=== PATIENT | male | born 1980 | race Caucasian/White ===

== ENCOUNTER 2016-06-04 06:22 | Emergency (ER) | payer MEDICAID ==
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
[2016-06-04 08:52] LABS: ABSOLUTE EOSINOPHILS # (AUTO) 0.1 10^3/uL (0.0-0.6); ABSOLUTE LYMPHOCYTES (AUTO) 1.9 10^3/uL (0.5-4.7); ABSOLUTE MONOCYTES (AUTO) 0.3 10^3/uL (0.1-1.4); BASOPHILS % (AUTO) 0.4 % (0-2); EOSINOPHILS % (AUTO) 0.8 % (0-6); HEMATOCRIT 44.1 % (37.9-51.0); HEMOGLOBIN 14.6 g/dL (13.5-17.0); HGB HCT DIFFERENCE -0.3; LYMPHOCYTES % (AUTO) 26.5 % (13-45); MEAN CORPUSCULAR HEMOGLOBIN 30.2 pg (27.0-33.4); MEAN CORPUSCULAR HGB CONC 33.1 g/dL (32.0-36.0); MEAN CORPUSCULAR VOLUME 91 fl (80-97); MONOCYTES % (AUTO) 4.1 % (3-13); RED BLOOD COUNT 4.84 10^6/uL (4.35-5.55); RED CELL DISTRIBUTION WIDTH 13.5 % (11.5-14.0); SEGMENTED NEUTROPHILS % (AUTO) 68.2 % (42-78); WHITE BLOOD COUNT 7.3 10^3/uL (4.0-10.5)
[2016-06-04 08:55] LABS: APPEARANCE,URINE CLEAR; BILIRUBIN,URINE NEGATIVE (NEGATIVE); GLUCOSE, URINE NEGATIVE (NEGATIVE); KETONES,URINE NEGATIVE (NEGATIVE); LEUKOCYTE ESTERASE,URINE NEGATIVE (NEGATIVE); NITRITE,URINE NEGATIVE (NEGATIVE); PROTEIN,URINE NEGATIVE (NEGATIVE); URINE SPECIFIC GRAVITY 1.006; UROBILINOGEN,URINE NEGATIVE mg/dL (<2.0)
[2016-06-04 09:11] LABS: ALANINE AMINOTRANSFERASE 19 U/L (21-72); ALBUMIN 4.2 g/dL (3.5-5.0); ALCOHOL 153 mg/dL (NONE DETECTED); ALKALINE PHOSPHATASE 55 U/L (38-126); ANION GAP 15 (5-19); ASPARTATE AMINO TRANSFERASE 23 U/L (17-59); BILIRUBIN,TOTAL 0.3 mg/dL (0.2-1.3); BLOOD UREA NITROGEN 15 mg/dL (7-20); CALCIUM 9.2 mg/dL (8.4-10.2); CARBON DIOXIDE 23 mmol/L (22-30); CHLORIDE 107 mmol/L (98-107); CREATININE RESULT 0.92 mg/dL (0.52-1.25); GLUCOSE 81 mg/dL (75-110); POTASSIUM 4.1 mmol/L (3.6-5.0); SODIUM 144.6 mmol/L (137-145); TOTAL PROTEIN 6.9 g/dL (6.3-8.2); URINE BARBITURATES SCREEN NEGATIVE; URINE METHADONE SCREEN NEGATIVE; URINE PHENCYCLIDINE SCREEN NEGATIVE
--- NOTE | 2016-06-04 11:04 | EKG REPORT ---
SEVERITY:- NORMAL ECG - SINUS RHYTHM ST ELEV, PROBABLE NORMAL EARLY REPOL PATTERN : Confirmed by: Puma Inman MD 04-Jun-2016 11:03:23
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
[2016-06-04 14:43] VITALS: BP 122/70
== END 2016-06-04 14:43 | disposition home or self-care (01) ==
LOC: ER 06:22
DX: F10.120 Alcohol abuse with intoxication, uncomplicated (principal); R45.851 Suicidal ideations; F41.9 Anxiety disorder, unspecified; F32.9 Major depressive disorder, single episode, unspecified; M25.519 Pain in unspecified shoulder; G89.29 Other chronic pain; R56.9 Unspecified convulsions
CPT/HCPCS: 36415; 80053; 80307; 81001; 85025; 93005; 93010; 99285

== ENCOUNTER 2016-09-05 03:43 | Emergency (ER) | payer MEDICAID, OTHER ==
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
[2016-09-05 05:55] VITALS: BP 120/75
--- NOTE | 2016-09-05 10:45 | EKG REPORT ---
SEVERITY:- NORMAL ECG - SINUS RHYTHM : Confirmed by: Archie Bernal 05-Sep-2016 10:44:57
== END 2016-09-05 05:54 | disposition home or self-care (01) ==
LOC: ER 03:43
DX: F41.9 Anxiety disorder, unspecified (principal); F17.200 Nicotine dependence, unspecified, uncomplicated; J44.9 Chronic obstructive pulmonary disease, unspecified
CPT/HCPCS: 93005; 93010; 99283

== ENCOUNTER 2016-09-05 10:01 | Emergency (ER) | payer MEDICAID ==
[2016-09-05] MEDS ORDERED: OXYCODONE-ACETAMINOPHEN 5-325 MG TABLET PO ONE (11:20)
--- NOTE | 2016-09-05 11:20 | ER Document Report ---
ED Medical Screen (RME) - General Chief Complaint: Shoulder Pain Stated Complaint: SHOULDER PAIN Mode of Arrival: Ambulatory Information source: Patient Notes: 36-year-old male presents with complaints of left shoulder pain, patient fell off ladder was attempted to grab himself feels his shoulder popped out just prior to arrival No previous similar episodes notes mild numbness in the back of her shoulder, pulses intact otherwise patient able to squeeze I have greeted and performed a rapid initial assessment of this patient. A comprehensive ED assessment and evaluation of the patient, analysis of test results and completion of the medical decision making process will be conducted by additional ED providers. PHYSICAL EXAMINATION: GENERAL: Well-appearing, well-nourished and in no acute distress. HEAD: Atraumatic, normocephalic. EYES: Pupils equal round extraocular movements intact, conjunctiva are normal. ENT: Nares patent NECK: Normal range of motion LUNGS: No respiratory distress Musculoskeletal: Limited range of motion of the left upper extremity with deformity of the left humeral head NEUROLOGICAL: Normal speech, normal gait. PSYCH: Normal mood, normal affect. SKIN: Warm, Dry, normal turgor, no rashes or lesions noted. TRAVEL OUTSIDE OF THE [place] IN LAST 30 DAYS: No - Related Data Allergies/Adverse Reactions: ketorolac [From Toradol] Allergy (Verified 09/05/16 03:53) tramadol Allergy (Verified 09/05/16 03:53) Past Medical History Pulmonary Medical History: Reports: Hx Bronchitis, Hx COPD, Hx Pneumonia Renal/ Medical History: Denies: Hx Peritoneal Dialysis Psychiatric Medical History: Reports: Hx Anxiety, Hx Depression Past Surgical History: Reports: Hx Orthopedic Surgery - left knee - Immunizations Immunizations up to date: Yes Hx Diphtheria, Pertussis, Tetanus Vaccination: Yes - 2010 Physical Exam - Vital signs Vitals: Temp Pulse Resp BP Pulse Ox 97.7 F 86 18 159/91 H 100 09/05/16 10:09/05/16 10:09/05/16 10:09/05/16 10:09/05/16 10:17 Course - Vital Signs Vital signs: Temp Pulse Resp BP Pulse Ox 97.7 F 86 18 159/91 H 100 09/05/16 10:09/05/16 10:09/05/16 10:09/05/16 10:09/05/16 10:17
[2016-09-05] MEDS ORDERED: MORPHINE SULFATE 10 MG/ML INJ IV ONE (11:26)
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
[2016-09-05 13:06] VITALS: BP 129/86
== END 2016-09-05 13:18 | disposition home or self-care (01) ==
LOC: ER 10:01
DX: S46.912A Strain of unspecified muscle, fascia and tendon at shoulder and upper arm level, left arm, initial encounter (principal); W11.XXXA Fall on and from ladder, initial encounter
CPT/HCPCS: 99283; 96374; 73030; J2270

== ENCOUNTER 2017-01-01 16:07 | Emergency (ER) | payer SELFPAY ==
[2017-01-01] MEDS ORDERED: NORMAL SALINE 1000 ML 1,000 ML IV ONE (16:19)
[2017-01-01] MEDS ORDERED: FAMOTIDINE INJ/PF 20 MG/2 ML SDV IV ONE (16:19)
--- NOTE | 2017-01-01 16:24 | ER Document Report ---
ED GI/ - General Chief Complaint: Vomiting Stated Complaint: VOMITTING Time Seen by Provider: 01/01/17 16:19 Notes: The patient is a 36-year-old male who presents after 3 episodes of yellow vomiting earlier today while he was out on his friend's boat. He said that he was drinking a lot of alcohol last night and felt some motion sickness on the boat today. He also had an episode of watery diarrhea today. One of his friends told him that he syncopized, but he is unsure. He was given Zofran by EMS and a normal saline bolus and feels better. Patient only having mild epigastric pain and denies fevers, hematemesis, headache, back pain, diarrhea, constipation or recent travel. TRAVEL OUTSIDE OF THE [place] IN LAST 30 DAYS: No - Related Data Allergies/Adverse Reactions: ketorolac [From Toradol] Allergy (Verified 09/05/16 03:53) tramadol Allergy (Verified 09/05/16 03:53) Past Medical History - General Information source: Patient - Social History Smoking Status: Current Every Day Smoker Family History: Reviewed & Not Pertinent, CAD - mi fathers sided, early 40's Pulmonary Medical History: Reports: Hx Bronchitis, Hx COPD, Hx Pneumonia Renal/ Medical History: Denies: Hx Peritoneal Dialysis Psychiatric Medical History: Reports: Hx Anxiety, Hx Depression Past Surgical History: Reports: Hx Orthopedic Surgery - left knee - Immunizations Immunizations up to date: Yes Hx Diphtheria, Pertussis, Tetanus Vaccination: Yes - 2010 Review of Systems - Review of Systems Notes: REVIEW OF SYSTEMS: CONSTITUTIONAL: -fevers, -chills EENT: -eye pain, -difficulty swallowing, -nasal congestion CARDIOVASCULAR: -chest pain, +syncope. RESPIRATORY: -cough, -SOB GASTROINTESTINAL: +epigastric abdominal pain, +nausea, +vomiting, +diarrhea GENITOURINARY: -dysuria, -hematuria MUSCULOSKELETAL: -back pain, -neck pain SKIN: -rash or skin lesions. HEMATOLOGIC: -easy bruising or bleeding. LYMPHATIC: -swollen, enlarged glands. NEUROLOGICAL: -altered mental status or loss of consciousness, -headache, - neurologic symptoms PSYCHIATRIC: -anxiety, -depression. ALL OTHER SYSTEMS REVIEWED AND NEGATIVE. Physical Exam - Vital signs Vitals: Resp Pulse Ox 12 98 01/01/17 16:24 01/01/17 16:24 - Notes Notes: PHYSICAL EXAMINATION: GENERAL: Well-appearing, well-nourished and in no acute distress. HEAD: Atraumatic, normocephalic. EYES: Pupils equal round and reactive to light, extraocular movements intact, sclera anicteric, conjunctiva are normal. ENT: nares patent, oropharynx clear without exudates. Moist mucous membranes. NECK: Normal range of motion, supple without lymphadenopathy LUNGS: Breath sounds clear to auscultation bilaterally and equal. No wheezes rales or rhonchi. HEART: Regular rate and rhythm without murmurs ABDOMEN: Soft, mild epigastric tenderness, normoactive bowel sounds. No guarding, no rebound. No masses appreciated. EXTREMITIES: Normal range of motion, no pitting or edema. No cyanosis. NEUROLOGICAL: Cranial nerves grossly intact. Normal speech, normal gait. Normal sensory and motor exams. PSYCH: Normal mood, normal affect. SKIN: Warm, Dry, normal turgor, no rashes or lesions noted. Course - Re-evaluation Re-evalutation: Patient is feeling much better after IV fluids, Zofran and Pepcid. He is drinking in the ER. Labs are unremarkable, including normal lipase. Instructed patient to begin Pepcid and Zofran for any symptoms. Given strict return precautions and he understands. - Vital Signs Vital signs: Temp Pulse Resp BP Pulse Ox 97.5 F 68 12 127/86 H 99 01/01/17 16:37 01/01/17 16:37 01/01/17 16:37 01/01/17 16:37 01/01/17 16:37 - Laboratory Result Diagrams: 01/01/17 16:20 01/01/17 16:20 Laboratory results interpreted by me: 01/01/17 16:20 Plt Count 129 L Seg Neutrophils % 83.0 H Lymphocytes % 10.8 L - EKG Interpretation by Ga EKG shows normal: Sinus rhythm, [place], Intervals, QRS Complexes, ST-T Waves Rate: Normal Discharge - Discharge Clinical Impression: Epigastric abdominal pain Nausea and vomiting Qualifiers: Vomiting type: unspecified Vomiting Intractability: non-intractable Qualified Code(s): R11.2 - Nausea with vomiting, unspecified Condition: Stable Disposition: HOME, SELF-CARE Additional Instructions: VOMITING: Vomiting (or nausea without vomiting) can be caused by many other different problems. It can mean that something's wrong with the stomach, such as ulcers or inflammation or the intestinal tract, such as appendicitis. But it can also be a symptom of a problem that has nothing to do with the stomach or intestines. Vomiting is common with severe headaches, earaches, tonsillitis, and kidney infections, etc. We see it with pneumonia or heart attacks. Drugs can cause nausea and vomiting. Many abdominal problems cause vomiting; for example, gallstones, kidney stones, pancreatitis, and intestinal obstruction ( blocked bowels). In most cases, curing the vomiting depends on fixing the problem that caused it. For temporary relief, we may use an anti-nausea medicine. For home use, we can prescribe suppositories, chewable pills, pills that dissolve in the mouth, or liquid anti-nausea drugs. If the vomiting seems to be caused by a problem in the stomach, acid-suppressing drugs may be prescribed as well. It's important to avoid dehydration. Sip small amounts of clear liquids ( soft drinks, tea, broth, etc) . Try to take fluids frequently even if you are vomiting to prevent dehydration. Take increasing amounts of fluid and when liquids are being consumed successfully, advance to small amounts of bland food (toast, soups, mashed potatoes, etc.) until you are able to resume a regular diet. Avoid aspirin, tobacco, and alcohol. If the vomiting worsens, if the problem that's making you vomit worsens, or if there's evidence of bleeding in the stomach (such as black, tarry stool, or bloody or black vomit), you should return immediately. Also, return if abdominal pain worsens or becomes localized to one area or you develop high fever. Call your doctor if you aren't improved in 24 hours. DIARRHEA, NON-SPECIFIC: Diarrhea means frequent, watery stools. There are many causes. Any problem that keeps the intestinal tract from absorbing water from the stool can lead to diarrhea. A sudden new diarrhea problem is usually caused by a virus, food sensitivity, toxic bacteria, or drugs. In this case, we expect the problem to go away soon. Testing is done only if you seem seriously ill from the diarrhea. If you have chronic diarrhea, or diarrhea that keeps coming back, we need to find out why. Chronic diarrhea can be due to inflammation of the bowels such as Crohn's disease or ulcerative colitis, food sensitivity such as intolerance to lactose or wheat protein, irritable bowel syndrome, and other problems. If your diarrhea is a significant problem but it's not clear why you have it, we' ll refer you to a specialist for further testing. During an episode of diarrhea, drink small amounts (two to six ounces) of clear liquids (soft drinks, sport drinks, herb teas, broth, etc). Take fluids frequently to prevent dehydration. It's usually not a problem to take mild anti- diarrhea medication such as Kaopectate or Pepto-Bismol. As the diarrhea eases, advance to small amounts of bland food (mashed potato, toast) for 24 hours. Call the physician if blood appears in your vomit or stool, if vomiting lasts longer than 24 hours, if the abdominal pain worsens or becomes localized to one area, if you develop high fever, or if you become lightheaded and weak. INTRAVENOUS (I V) FLUIDS: As part of your care today, you received intravenous (IV) fluids. IV fluids are administered to patients who are dehydrated or to those who have certain chemical (electrolyte) abnormalities that need correcting. ANTINAUSEA MEDICATION: You have been given a medication to suppress nausea and vomiting. This type of medication can be given as a shot, pill, or suppository. It will usually last for many hours. Pills and shots usually last six to eight hours. For the typical illness, only one or two doses of the medication may be necessary. Mild lightheadedness may occur. This type of medicine can cause drowsiness. Do not drive or operate dangerous machinery while under its influence. Do not mix with alcohol. See your doctor at once if you have muscle spasms or tightness, or uncontrollable motions (particularly of the neck, mouth, or jaw). Persistent vomiting or severe lightheadedness should also be evaluated by the physician. FOLLOW-UP CARE: If you have been referred to a physician for follow-up care, call the physician s office for an appointment as you were instructed or within the next two days. If you experience worsening or a significant change in your symptoms, notify the physician immediately or return to the Emergency Department at any time for re-evaluation. Prescriptions: Famotidine [Pepcid 20 mg Tablet] 20 mg PO BID #12 tablet Ondansetron [Zofran Odt 4 mg Tablet] 1 - 2 tab PO Q4H PRN #15 tab.rapdis PRN Reason: For Nausea/Vomiting
[2017-01-01 16:31] LABS: ABSOLUTE BASOPHILS # (AUTO) 0.1 10^3/uL (0.0-0.2); ABSOLUTE LYMPHOCYTES (AUTO) 0.9 10^3/uL (0.5-4.7); ABSOLUTE MONOCYTES (AUTO) 0.4 10^3/uL (0.1-1.4); ABSOLUTE NEUT (AUTO) 7.2 10^3/uL (1.7-8.2); BASOPHILS % (AUTO) 0.6 % (0-2); EOSINOPHILS % (AUTO) 0.5 % (0-6); HEMATOCRIT 44.6 % (37.9-51.0); HEMOGLOBIN 15.5 g/dL (13.5-17.0); HGB HCT DIFFERENCE 1.9; LYMPHOCYTES % (AUTO) 10.8 % (13-45); MEAN CORPUSCULAR HEMOGLOBIN 31.7 pg (27.0-33.4); MEAN CORPUSCULAR HGB CONC 34.7 g/dL (32.0-36.0); MEAN CORPUSCULAR VOLUME 91 fl (80-97); MONOCYTES % (AUTO) 5.1 % (3-13); RED BLOOD COUNT 4.88 10^6/uL (4.35-5.55); RED CELL DISTRIBUTION WIDTH 13.7 % (11.5-14.0); WHITE BLOOD COUNT 8.7 10^3/uL (4.0-10.5)
[2017-01-01 16:45] LABS: ALANINE AMINOTRANSFERASE 30 U/L (21-72); ALBUMIN 4.9 g/dL (3.5-5.0); ALKALINE PHOSPHATASE 54 U/L (38-126); ANION GAP 10 (5-19); ASPARTATE AMINO TRANSFERASE 24 U/L (17-59); BILIRUBIN,DIRECT 0.4 mg/dL (0.0-0.4); BILIRUBIN,TOTAL 0.6 mg/dL (0.2-1.3); BLOOD UREA NITROGEN 16 mg/dL (7-20); CALCIUM 9.9 mg/dL (8.4-10.2); CARBON DIOXIDE 27 mmol/L (22-30); CHLORIDE 105 mmol/L (98-107); CREATININE RESULT 0.85 mg/dL (0.52-1.25); GLUCOSE 95 mg/dL (75-110); LIPASE 106.4 U/L (23-300); POTASSIUM 4.2 mmol/L (3.6-5.0); TOTAL PROTEIN 7.6 g/dL (6.3-8.2)
[2017-01-01 16:46] LABS: ALCOHOL < 10 mg/dL (NONE DETECTED)
[2017-01-01 17:09] VITALS: BP 134/83
--- NOTE | 2017-01-01 17:11 | EKG REPORT ---
SEVERITY:- NORMAL ECG - SINUS RHYTHM : Confirmed by: Puma Inman MD 01-Jan-2017 17:11:06
== END 2017-01-01 17:18 | disposition home or self-care (01) ==
LOC: ER 16:07
DX: T75.3XXA Motion sickness, initial encounter (principal); Y92.814 Boat as the place of occurrence of the external cause; R11.2 Nausea with vomiting, unspecified; R19.7 Diarrhea, unspecified; R10.13 Epigastric pain; Z88.5 Allergy status to narcotic agent; Z88.8 Allergy status to other drugs, medicaments and biological substances; F17.200 Nicotine dependence, unspecified, uncomplicated; R55 Syncope and collapse
CPT/HCPCS: 93005; 99284; 96374; 36415; 80307; 83690; 85025; 80053; 93010; J7030; S0028

== ENCOUNTER 2017-10-23 08:06 | Emergency (ER) | payer SELFPAY ==
[2017-10-23] MEDS ORDERED: ACETAMINOPHEN 325 MG TABLET PO ONE (08:31)
--- NOTE | 2017-10-23 09:04 | RADIOLOGY REPORT (SQ) ---
EXAM DESCRIPTION: CT CERVICAL SPINE WITHOUT COMPLETED DATE/TIME: 10/23/2017 8:47 am REASON FOR STUDY: drowsy, dizzy, neck pain COMPARISON: CT cervical spine 03/04/2013, 04/17/2011, 11/21/2009 TECHNIQUE: Axial images acquired through the cervical spine without intravenous contrast. Images re viewed with lung, soft tissue and bone windows. Reconstructed coronal and sagittal MPR images review ed. Images stored on PACS. All CT scanners at this facility use dose modulation, iterative reconstruction, and/or weight based d osing when appropriate to reduce radiation dose to as low as reasonably achievable (ALARA). [facility]: Dose Right [facility]: CareDose [facility]: Dose Right [facility]: Teradose 4D [facility]: [employer] Custom RADIATION DOSE: CT Rad equipment meets quality standard of care and radiation dose reduction techniq ues were employed. CTDIvol: 14.4 mGy. DLP: 278 mGy-cm. mGy. LIMITATIONS: None. FINDINGS: ALIGNMENT: Anatomic. MINERALIZATION: Normal. VERTEBRAL BODIES: No fractures or dislocation. DISCS: Mild degenerative disc change at C5-6, with mild disc space loss of height and posterior disc bulging and bony spurring. No central or right foraminal stenosis. Mild to moderate left foraminal narrowing. FACETS, LATERAL MASSES, POSTERIOR ELEMENTS: No fractures. No dislocation. No acute findings. HARDWARE: None in the spine. VISUALIZED RIBS: No fractures. LUNG APICES AND SOFT TISSUES: No significant or acute findings. OTHER: Radiopaque pellet cord BB in the left neck soft tissues at the level of the mandibular angle a xial image 24 IMPRESSION: No acute findings. Mild degenerative disc changes at C5-6. TECHNICAL DOCUMENTATION: JOB ID: [id number] Quality ID # [id number]: Final reports with documentation of one or more dose reduction techniques (e.g., Au tomated exposure control, adjustment of the mA and/or kV according to patient size, use of iterative reconstruction technique) 2010 [employer]- All Rights Reserved Reading location - IP/workstation name: [email or web address]
--- NOTE | 2017-10-23 09:23 | RADIOLOGY REPORT (SQ) ---
EXAM DESCRIPTION: CT HEAD WITHOUT COMPLETED DATE/TIME: 10/23/2017 8:47 am REASON FOR STUDY: drowsy, dizzy, neck pain COMPARISON: None. TECHNIQUE: Axial images acquired through the brain without intravenous contrast. Images reviewed wi th bone, brain and subdural windows. Images stored on PACS. All CT scanners at this facility use dose modulation, iterative reconstruction, and/or weight based d osing when appropriate to reduce radiation dose to as low as reasonably achievable (ALARA). [facility]: Dose Right [facility]: CareDose [facility]: Dose Right [facility]: Teradose 4D [facility]: Smart [employer] RADIATION DOSE: CT Rad equipment meets quality standard of care and radiation dose reduction techniq ues were employed. CTDIvol: 53.2 mGy. DLP: 964 mGy-cm. mGy. LIMITATIONS: None. FINDINGS: VENTRICLES: Normal size and contour. CEREBRUM: No masses. No hemorrhage. No midline shift. No evidence for acute infarction. Normal gra y/white matter differentiation. No areas of low density in the white matter. CEREBELLUM: No masses. No hemorrhage. No alteration of density. No evidence for acute infarction. EXTRAAXIAL SPACES: No fluid collections. No masses. ORBITS AND GLOBE: No intra- or extraconal masses. Normal contour of globe without masses. CALVARIUM: No fracture. PARANASAL SINUSES: No fluid or mucosal thickening. SOFT TISSUES: No mass or hematoma. OTHER: No other significant finding. IMPRESSION: NORMAL BRAIN CT WITHOUT CONTRAST. EVIDENCE OF ACUTE STROKE: NO. COMMENT: Quality ID # [id number]: Final reports with documentation of one or more dose reduction techniques (e.g., Automated exposure control, adjustment of the mA and/or kV according to patient size, use of iterative reconstruction technique) TECHNICAL DOCUMENTATION: JOB ID: [id number] SC-69 2010 [employer]- All Rights Reserved Reading location - IP/workstation name: [email or web address]
--- NOTE | 2017-10-23 09:56 | ER Document Report ---
ED General - General Chief Complaint: Vertigo Stated Complaint: WEAKNESS Time Seen by Provider: 10/23/17 08:17 Mode of Arrival: Medic Information source: Patient Notes: Patient is a 37-year-old male who presents to the ER via EMS today for nausea and dizziness "like the room is spinning" prior to arrival. Patient was in his kitchen at home when he started to feel dizzy, has a history of vertigo so he took some meclizine and feels a little better. Patient states that he may have fallen and hit the back of his neck on the kitchen sink. He denies loss of consciousness. He denies any alcohol use. TRAVEL OUTSIDE OF THE [place] IN LAST 30 DAYS: No - Related Data Allergies/Adverse Reactions: ketorolac [From Toradol] Allergy (Verified 10/23/17 08:17) tramadol Allergy (Verified 10/23/17 08:17) Past Medical History - General Information source: Patient - Social History Smoking Status: Current Every Day Smoker Frequency of alcohol use: Occasional Drug Abuse: Marijuana Family History: Reviewed & Not Pertinent, CAD - mi fathers sided, early 40's Patient has suicidal ideation: No Patient has homicidal ideation: No Pulmonary Medical History: Reports: Hx Bronchitis, Hx COPD, Hx Pneumonia Renal/ Medical History: Denies: Hx Peritoneal Dialysis Psychiatric Medical History: Reports: Hx Anxiety, Hx Depression Past Surgical History: Reports: Hx Orthopedic Surgery - left knee - Immunizations Immunizations up to date: Yes Hx Diphtheria, Pertussis, Tetanus Vaccination: Yes - 2010 Review of Systems - Review of Systems Constitutional: No symptoms reported EENT: No symptoms reported Cardiovascular: No symptoms reported Respiratory: No symptoms reported Gastrointestinal: No symptoms reported Genitourinary: No symptoms reported Male Genitourinary: No symptoms reported Musculoskeletal: See HPI Skin: No symptoms reported Hematologic/Lymphatic: No symptoms reported Neurological/Psychological: See HPI Physical Exam - Vital signs Vitals: Temp Pulse Resp BP Pulse Ox 98.0 F 92 18 130/86 H 94 10/23/17 08:10 10/23/17 08:10 10/23/17 08:10 10/23/17 08:10 10/23/17 08:10 - Notes Notes: PHYSICAL EXAMINATION: GENERAL: Drowsy appearing, but in no acute distress. HEAD: Atraumatic, normocephalic. EYES: Pupils equal round and reactive to light, extraocular movements intact, sclera anicteric, conjunctiva are normal. ENT: ear canals without erythema or foreign body, TMs pearly fung with good bony landmarks, nares patent, oropharynx clear without exudates. Moist mucous membranes. NECK: C-collar in place LUNGS: CTAB and equal. No wheezes rales or rhonchi. HEART: Regular rate and rhythm without murmurs ABDOMEN: Soft, no tenderness. No guarding, no rebound BACK: no vertebral tenderness, normal ROM GI/: no CVA tenderness EXTREMITIES: Normal range of motion, no pitting edema. No cyanosis. NEUROLOGICAL: Cranial nerves grossly intact. Normal sensory/motor exams. PSYCH: Drowsy but arousable and answers questions appropriately SKIN: Warm, Dry, normal turgor, no rashes or lesions noted Course - Re-evaluation Re-evalutation: 10/23/17 09:53 CT of the head and cervical spine negative for any acute pathology, patient does appear to be under the influence of something but is clinically stable for discharge. He does have a ride coming to get him. - Vital Signs Vital signs: Temp Pulse Resp BP Pulse Ox 97.4 F 67 16 117/82 97 10/23/17 10:04 10/23/17 10:04 10/23/17 10:04 10/23/17 10:04 10/23/17 10:04 Discharge - Discharge Clinical Impression: Neck pain, Vertigo Condition: Stable Disposition: HOME, SELF-CARE Additional Instructions: Return immediately for any new or worsening symptoms. Follow up with primary care provider, call tomorrow to make followup appointment. Take your meclizine for vertigo Prescriptions: Meclizine HCl 25 mg PO TID PRN #15 tablet PRN Reason: Forms: Return to Work
[2017-10-23 10:09] VITALS: BP 117/82
== END 2017-10-23 10:09 | disposition home or self-care (01) ==
LOC: ER 08:06
DX: M54.2 Cervicalgia (principal); R42 Dizziness and giddiness; R53.1 Weakness; F17.200 Nicotine dependence, unspecified, uncomplicated; J44.9 Chronic obstructive pulmonary disease, unspecified
CPT/HCPCS: 70450; 72125; 99284

== ENCOUNTER 2019-12-08 23:30 | Emergency (ER) | payer SELFPAY ==
--- NOTE | 2019-12-09 00:23 | ER Document Report ---
ED Medical Screen (RME) - General Chief Complaint: Syncope Stated Complaint: SYNCOPAL EPISODE Time Seen by Provider: 12/09/19 00:17 Notes: HPI: 39-year-old male presenting to the emergency department complaining of syncopal episode tonight. States he is having up to 2 episodes a month like this over the last 2 to 3 years. States he did fall to the ground believes he hit his head, complains of mild headache. Denies other physical injuries at this time. Patient states that he takes no medications other than meclizine for vertigo symptoms. States he possibly had a history of some thyroid issues 2 years ago but never followed up on and does not take any medication for thyroid. Patient denies drugs or alcohol at this time. Patient states that he was outside throughout the afternoon riding on a 4 colon but did not fall off and did not have injury. PHYSICAL EXAMINATION: Patient is answering all questions appropriately lung sounds are clear to auscultation regular rate and rhythm. I have greeted and performed a rapid initial assessment of this patient. A comprehensive ED assessment and evaluation of the patient, analysis of test results and completion of medical decision making process will be conducted by an additional ED providers. TRAVEL OUTSIDE OF THE [place] IN LAST 30 DAYS: No - Related Data Allergies/Adverse Reactions: ketorolac [From Toradol] Allergy (Verified 10/23/17 08:17) tramadol Allergy (Verified 10/23/17 08:17) Home Medications: Xanax, Meclazine, Percocet Past Medical History - Social History Frequency of alcohol use: None Drug Abuse: None Pulmonary Medical History: Reports: Hx Bronchitis, Hx COPD, Hx Pneumonia Renal/ Medical History: Denies: Hx Peritoneal Dialysis Psychiatric Medical History: Reports: Hx Anxiety, Hx Depression Past Surgical History: Reports: Hx Orthopedic Surgery - left knee - Immunizations Immunizations up to date: Yes Hx Diphtheria, Pertussis, Tetanus Vaccination: Yes - 2010 Physical Exam - Vital signs Vitals: Temp Pulse Resp BP Pulse Ox 97.6 F 56 L 18 131/92 H 98 12/08/19 23:40 12/08/19 23:40 12/08/19 23:40 12/08/19 23:40 12/08/19 23:40 Course - Vital Signs Vital signs: Temp Pulse Resp BP Pulse Ox 97.6 F 56 L 18 131/92 H 98 12/08/19 23:40 12/08/19 23:40 12/08/19 23:40 12/08/19 23:40 12/08/19 23:40
[2019-12-09 00:47] LABS: ABSOLUTE EOSINOPHILS # (AUTO) 0.1 10^3/uL (0.0-0.6); ABSOLUTE LYMPHOCYTES (AUTO) 2.1 10^3/uL (0.5-4.7); ABSOLUTE MONOCYTES (AUTO) 0.5 10^3/uL (0.1-1.4); ABSOLUTE NEUT (AUTO) 3.5 10^3/uL (1.7-8.2); BASOPHILS % (AUTO) 0.6 % (0-2); EOSINOPHILS % (AUTO) 2.2 % (0-6); HEMATOCRIT 40.6 % (37.9-51.0); HEMOGLOBIN 14.3 g/dL (13.5-17.0); LYMPHOCYTES % (AUTO) 33.9 % (13-45); MEAN CORPUSCULAR HEMOGLOBIN 30.3 pg (27.0-33.4); MEAN CORPUSCULAR HGB CONC 35.4 g/dL (32.0-36.0); MEAN CORPUSCULAR VOLUME 86 fl (80-97); MONOCYTES % (AUTO) 8.5 % (3-13); PLATELET COUNT 127 10^3/uL (150-450); RED BLOOD COUNT 4.74 10^6/uL (4.35-5.55); RED CELL DISTRIBUTION WIDTH 13.7 % (11.5-14.0); SEGMENTED NEUTROPHILS % (AUTO) 54.8 % (42-78); TOTAL CELLS COUNTED % (AUTO) 100 %; WHITE BLOOD COUNT 6.3 10^3/uL (4.0-10.5)
[2019-12-09 01:03] LABS: ALBUMIN 4.4 g/dL (3.5-5.0); ALCOHOL < 10 mg/dL (NONE DETECTED); ALKALINE PHOSPHATASE 49 U/L (38-126); ANION GAP 5 (5-19); ASPARTATE AMINO TRANSFERASE 26 U/L (17-59); BILIRUBIN,TOTAL 0.3 mg/dL (0.2-1.3); BLOOD UREA NITROGEN 14 mg/dL (7-20); CALCIUM 9.3 mg/dL (8.4-10.2); CARBON DIOXIDE 24 mmol/L (22-30); CHLORIDE 107 mmol/L (98-107); CREATINE KINASE 264 U/L (55-170); GLUCOSE 98 mg/dL (75-110); POTASSIUM 3.5 mmol/L (3.6-5.0)
--- NOTE | 2019-12-09 01:04 | RADIOLOGY REPORT (SQ) ---
CT of the head: 12/09/2019 12:01 AM CDT HISTORY: 39-year-old patient with syncope. COMPARISON: CT the head from 10/23/2017 TECHNIQUE: Multiple axial contiguous images were obtained through the head without intravenous contrast administered. This exam was performed according to our departmental dose-optimization program, which includes automated exposure control, adjustment of the mA and/or KV according to the patient's size and/or use of iterative reconstruction technique. FINDINGS: The ventricles are within normal limits for size. Both orbits appear unremarkable. The mastoid air cells appear clear. The visualized paranasal sinuses appear clear. The calvarium is intact. No extra-axial fluid collection is seen. The shepherd-white matter differentiation is within normal limits. No midline shift or mass effect is apparent. There are no findings to suggest acute intracranial hemorrhage. There is some subcutaneous air seen around the base of the skull within the hospital recruiter spaces as well as around the cervical spine. This may be due to trauma from below. IMPRESSION: No acute intracranial hemorrhage is seen. There is some subcutaneous air seen around the base of the skull within the hospital recruiter spaces as well as around the cervical spine. This may be due to trauma from below.
[2019-12-09] MEDS ORDERED: NORMAL SALINE 1000 ML 1,000 ML IV ONE ×2 (01:16→05:03)
[2019-12-09] MEDS ORDERED: ONDANSETRON HCL INJ/PF 4 MG/2 ML SDV IV ONE (01:17)
[2019-12-09] MEDS ORDERED: FENTANYL CITRATE INJ/PF 100 MCG/2 ML AMPUL IV ONE (01:17)
--- NOTE | 2019-12-09 01:19 | ER Document Report ---
ED General - General Chief Complaint: Syncope Stated Complaint: SYNCOPAL EPISODE Time Seen by Provider: 12/09/19 00:17 Primary Care Provider: ISHAAN GRACE MD [Primary Care Provider] - Follow up as needed Notes: Patient is a 39-year-old male who comes emergency department for chief complaint of an episode of passing out earlier today. Patient states that he has frequent vertigo, he states that he became very dizzy, got up, went into the house, and either fell and was knocked out or passed out. He states he thinks he landed on his fist underneath his chest on the ground and also struck the top right side of his head on the ground. He does not remember the event, he woke up on the ground after going towards the house. He denies chest pain although he has pain over the left side of his chest after the fall. He has a headache and pain with some soft tissue swelling over the top right part of his head. He also has pain in his right wrist. He denies focal numbness or weakness, incontinence. 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 He also states he has ongoing difficulty with vertigo and takes meclizine multiple times a day. He also has chronic back pain and anxiety, he takes Xanax and he used to be on hydrocodone but recently stopped this reportedly. He denies recreational drugs, denies medical history otherwise. TRAVEL OUTSIDE OF THE [place] IN LAST 30 DAYS: No - Related Data Allergies/Adverse Reactions: ketorolac [From Toradol] Allergy (Verified 10/23/17 08:17) tramadol Allergy (Verified 10/23/17 08:17) Home Medications: Xanax, Meclazine, Percocet Past Medical History - General Information source: Patient - Social History Smoking Status: Current Every Day Smoker Frequency of alcohol use: None Drug Abuse: None Lives with: Family Family History: Reviewed & Not Pertinent, CAD - mi fathers sided, early 40's Patient has homicidal ideation: No Pulmonary Medical History: Reports: Hx Bronchitis, Hx COPD, Hx Pneumonia Renal/ Medical History: Denies: Hx Peritoneal Dialysis Musculoskeletal Medical History: Reports Other - Chronic back pain, lumbar spine Psychiatric Medical History: Reports: Hx Anxiety, Hx Depression Past Surgical History: Reports: Hx Orthopedic Surgery - left knee - Immunizations Immunizations up to date: Yes Hx Diphtheria, Pertussis, Tetanus Vaccination: Yes - 2010 Review of Systems - Review of Systems Constitutional: See HPI EENT: No symptoms reported Cardiovascular: No symptoms reported Respiratory: No symptoms reported Gastrointestinal: No symptoms reported Genitourinary: No symptoms reported Male Genitourinary: No symptoms reported Musculoskeletal: See HPI Skin: No symptoms reported Hematologic/Lymphatic: No symptoms reported Neurological/Psychological: See HPI Physical Exam - Vital signs Vitals: Temp Pulse Resp BP Pulse Ox 97.6 F 56 L 18 131/92 H 98 12/08/19 23:40 12/08/19 23:40 12/08/19 23:40 12/08/19 23:40 12/08/19 23:40 - Notes Notes: GENERAL: Alert, oriented, cooperative. Patient appears slightly uncomfortable and restless HEAD: Normocephalic. There is some soft tissue swelling over the right f rontal/parietal area but no open wounds, no other signs of trauma to the head. EYES: Pupils equal, round, and reactive to light. Extraocular movements intact. No noted nystagmus. ENT: Oral mucosa moist, tongue midline. Oropharynx unremarkable. Airway patent. Nares patent, no septal hematoma, sinuses non-tender, ear canals unremarkable, TM's intact. NECK: Full range of motion. Supple. Trachea midline. No lymphadenopathy. LUNGS: Clear to auscultation bilaterally, no wheezes, rales, or rhonchi. No respiratory distress. Patient winces and appears to have significant pain with palpation over the left frontal and upper chest although no obvious crepitus or signs of trauma are noted. HEART: Regular rate and rhythm. No murmur ABDOMEN: Soft, non-tender. Non-distended. No signs of trauma. 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 BACK: No signs of trauma. No cervical, thoracic, lumbar midline tenderness. No saddle anesthesia, normal distal neurovascular exam. Moves all extremities in full range of motion. NEUROLOGICAL: Alert and oriented x3. Normal speech. Cranial nerves II through XII grossly intact. Strength 5/5 in all extremities. PSYCH: Restless but cooperative SKIN: Warm, dry, normal turgor. No rashes or lesions noted. Course - Re-evaluation Re-evalutation: Patient is somewhat disheveled but he is well-appearing. He does have scalp hematoma over the right frontal scalp area, he does have tenderness over the l eft chest wall and over the right wrist suggesting he fell on the wrist face forward. He has some generalized tenderness over the neck but this is nonspecific, his back exam is unremarkable otherwise, he has no neurological deficits. He is not in distress. He has no open wounds. Vital signs unre markable. CBC nonspecific, chemistry unremarkable, troponin negative, TSH from triage is slightly elevated suggesting some hypothyroidism component. Patient does not have nystagmus or dizziness with standing with me, therefore this was not treated. He was treated with IV fluids, after this he was able to give a urine and this showed still very concentrated urine, he was given additional IV fluid. There definitely appears to be a dehydration component, patient worked all day outside working on trees. CT of the head, neck, and chest with no acute findings except for air in the venous system. Discussed with Dr. Root, he recommends I speak with the radiologist about this. I did call and speak with the radiologist who read the studies, he states there is not a clinically significant amount of air and regardless of this being reviewed and commented on there is no recommended intervention or follow-up for this. I discussed all details with patient at length. Second troponin is negative. Patient does have primary care follow-up. We discussed his vertigo symptoms, his syncopal episode, his abnormal TSH, and possible adjustments in the future. He states he feels much better after the IV fluids, he has no current complaints and he is requesting discharge. Discussed head injury precautions and return precautions. Patient states appreciation and agreement. Stable, asymptomatic, well-appearing at time of discharge. - Vital Signs Vital signs: Temp Pulse Resp BP Pulse Ox 97.6 F 56 L 14 115/78 96 12/08/19 23:40 12/08/19 23:40 12/09/19 05:30 12/09/19 05:30 12/09/19 05:30 - Laboratory Result Diagrams: 12/09/19 00:31 12/09/19 00:31 Laboratory results interpreted by me: 12/09/19 12/09/19 12/09/19 00:31 00:31 00:31 Plt Count 127 L Sodium 136.3 L Potassium 3.5 L Creatine Kinase 264 H TSH 5.67 H - EKG Interpretation by Me Additional EKG results interpreted by me: EKG shows borderline sinus bradycardia at a rate of 57, QTc of 401, IN interval of 156. Normal axis. No T wave inversions or ST segment changes in consecutive leads. Discharge - Discharge Clinical Impression: Chest wall pain, Right wrist pain, Dehydration, Abnormal TSH Head injury Qualifiers: Encounter type: initial encounter Qualified Code(s): S09.90XA - Unspecified injury of head, initial encounter Condition: Stable Disposition: HOME, SELF-CARE Additional Instructions: It is unclear if you passed out and had your injury or if you had a head injury and passed out. Regardless your imaging does not show any concerning findings. Based on your dehydration tonight I suspect he did have a syncopal episode. You have been rehydrated. Improve your hydration in the future. Follow-up with primary care for additional management and work-up in regards to passing out. As we discussed you could discuss/consider changing your benzodiazepine with your provider to help improve your vertigo symptoms. Also your TSH is slightly elevated suggesting that you have hypothyroidism, this needs to be fully evaluated and managed by primary care. Return for any concerning symptoms including chest pain, passing out again, or any other concerning or worsening symptoms. See head injury precautions listed below. Head Injury Precautions At this point, there is no evidence that your head injury is serious. Observation is necessary, however. Limit activity for the first 24 hours. During the first 24 hours, check to see approximately every two to three hours that the patient is easily arousable, responds normally, and can perform common tasks such as walking without difficulty. Contact your doctor or go to the hospital if any of the following things occur: Persistent vomiting, difficulty in arousing the patient, worsening or continued headache, or failure to improve as expected. Head injuries can cause symptoms that persist for a few days or even a few weeks. Forms: Return to Work Referrals: ISHAAN GRACE MD [Primary Care Provider] - Follow up as needed
--- NOTE | 2019-12-09 02:13 | RADIOLOGY REPORT (SQ) ---
CLINICAL HISTORY: fall, pain COMPARISON: None. TECHNIQUE: CT CERVICAL SPINE WITHOUT IV CONTRAST on 12/09/2019 1:15 AM CDT This exam was performed according to our departmental dose-optimization program, which includes automated exposure control, adjustment of the mA and/or kV according to patient size and/or use of iterative reconstruction technique. FINDINGS: There is no acute fracture. Vertebral body heights are preserved. Alignment is anatomic. There is mild narrowing of the C5-6 disc. Soft tissues are unremarkable. IMPRESSION: No acute fracture or subluxation.
--- NOTE | 2019-12-09 02:14 | RADIOLOGY REPORT (SQ) ---
CLINICAL HISTORY: fall, pain COMPARISON: None. TECHNIQUE: XR WRIST 3 OR MORE VIEWS 12/09/2019 1:16 AM CDT FINDINGS: There is no fracture. Joint spaces are preserved. Soft tissues are unremarkable. IMPRESSION: No acute osseous findings.
--- NOTE | 2019-12-09 02:51 | RADIOLOGY REPORT (SQ) ---
CLINICAL HISTORY: fall, pain COMPARISON: None. TECHNIQUE: CT CHEST WITH IV CONTRAST on 12/09/2019 1:15 AM CDT. MIPS reconstructions were generated. This exam was performed according to our departmental dose-optimization program, which includes automated exposure control, adjustment of the mA and/or kV according to patient size and/or use of iterative reconstruction technique. MIP images were generated. FINDINGS: Thoracic aorta is normal in course and caliber without aneurysm or dissection. Pulmonary arteries are adequately opacified without acute or chronic filling defects. The heart is normal in size. There is no pericardial effusion. Intrathoracic lymph nodes are not enlarged. There is no pleural effusion, pleural thickening or pneumothorax. Central airways are patent. Lungs are clear with no consolidation, mass or interstitial lung disease. There are no acute abnormalities within the limited images of the upper abdomen. There are no acute osseous findings. No suspicious bony lesions. IMPRESSION: No definite posttraumatic findings
--- NOTE | 2019-12-09 02:59 | RADIOLOGY REPORT (SQ) ---
EXAM DESCRIPTION: CT NECK WITH IV CONTRAST COMPLETED DATE/TME: 12/09/2019 00:00 CLINICAL HISTORY: 39 years, Male, FALL, ? SUBCUE AIR COMPARISON: Noncontrast cervical spine CT dated March 04, 2013 TECHNIQUE: Postcontrast axial, coronal, and sagittal of the neck were obtained utilizing 80 mL Omnipaque 350 intravenously. Images stored on PACS. All CT scanners at this facility use dose modulation, iterative reconstruction, and/or weight based dosing when appropriate to reduce radiation dose to as low as reasonably achievable (ALARA). [facility]: Dose Right [facility]: CareDose [facility]: Dose Right [facility]: Teradose 4D [facility]: StartDate Labs LIMITATIONS: None. FINDINGS: Cervical vertebral body heights and alignment are maintained. Disc space loss and marginal osteophyte formation are noted at C5-C6 and there is also [id number] degenerative disc disease at C6-C7. There is a chronic metallic foreign body within the soft tissues deep and inferior to the left mandible, present on the prior CT. No definite discrete neck mass or abnormal collection is seen, however there is mild generalized cervical adenopathy with lymph nodes measuring up to 9 mm in short axis, nonspecific. There is no subcutaneous emphysema or evidence of apical pneumothorax or superior pneumomediastinum. There are a few gas bubbles scattered about the skull base and upper cervical spine, which appear to be in venous locations and likely from an IV. IMPRESSION: 1. No subcutaneous emphysema. No evidence of apical pneumothorax or superior pneumomediastinum. 2. There are a few gas bubbles about the skull base and upper cervical spine region, which appear to be venous in location and likely secondary to an IV line. 3. Nonspecific mild cervical adenopathy. Clinical correlation is recommended. TECHNICAL DOCUMENTATION: Quality ID # [id number]: Final reports with documentation of one or more dose reduction techniques (e.g., Automated exposure control, adjustment of the mA and/or kV according to patient size, use of iterative reconstruction technique) copyright 2011 [employer]- All Rights Reserved
[2019-12-09 04:46] LABS: APPEARANCE,URINE CLEAR; BILIRUBIN,URINE NEGATIVE (NEGATIVE); COLOR,URINE YELLOW; GLUCOSE, URINE NEGATIVE (NEGATIVE); KETONES,URINE NEGATIVE (NEGATIVE); LEUKOCYTE ESTERASE,URINE NEGATIVE (NEGATIVE); NITRITE,URINE NEGATIVE (NEGATIVE); PROTEIN,URINE NEGATIVE (NEGATIVE); URINE SPECIFIC GRAVITY 1.058; UROBILINOGEN,URINE NEGATIVE mg/dL (<2.0)
[2019-12-09 04:59] LABS: URINE BARBITURATES SCREEN NEGATIVE; URINE BENZODIAZEPINES SCREEN NEGATIVE; URINE COCAINE SCREEN NEGATIVE; URINE MARIJUANA (THC) SCREEN NEGATIVE; URINE METHADONE SCREEN NEGATIVE; URINE PHENCYCLIDINE SCREEN NEGATIVE
[2019-12-09 06:02] VITALS: BP 115/78
--- NOTE | 2019-12-09 07:51 | EKG REPORT ---
SEVERITY:- NORMAL ECG - SINUS RHYTHM : Confirmed by: Archie Bernal 09-Dec-2019 07:50:28
== END 2019-12-09 06:58 | disposition home or self-care (01) ==
LOC: ER 23:30
DX: S09.90XA Unspecified injury of head, initial encounter (principal); R07.89 Other chest pain; E86.0 Dehydration; R94.6 Abnormal results of thyroid function studies; R55 Syncope and collapse; R42 Dizziness and giddiness; R22.0 Localized swelling, mass and lump, head; R51 Headache; M25.531 Pain in right wrist; M54.9 Dorsalgia, unspecified; G89.29 Other chronic pain; W19.XXXA Unspecified fall, initial encounter; Z79.899 Other long term (current) drug therapy; Z88.8 Allergy status to other drugs, medicaments and biological substances; F17.200 Nicotine dependence, unspecified, uncomplicated
CPT/HCPCS: 93005; 99284; 96361; 96374; 96375; 36415; 80307 ×2; 82550; 84443; 85025; 80053; 81001; 84484; 73110; 70450; 70491; 71260; 72125; 93010; J3010; J2405; J7030